=== PATIENT | male | born 1945 | race Caucasian/White ===

== ENCOUNTER 2019-04-03 05:00 | Inpatient (IN) | payer MEDICARE ==
[2019-03-29 12:31] LABS: BASOPHILS % 0.6 % (0.0-1.0); EOSINOPHILS # (AUTO) 0.1 (0.0-0.4); EOSINOPHILS % 1.6 % (0.0-6.0); HEMATOCRIT 40.2 % (38.2-49.6); HEMOGLOBIN 13.7 g/dL (14.0-18.0); LYMPHOCYTES # (AUTO) 1.8 (1.0-3.2); MEAN CORPUSCULAR HGB CONC 34.1 g/dL (31-35); MEAN CORPUSCULAR VOLUME 88.2 fL (81-99); MONOCYTES # (AUTO) 0.6 (0.2-0.8); MONOCYTES % 8.8 % (4.4-11.3); NEUTROPHILS # (AUTO) 3.8 (2.1-6.9); NEUTROPHILS % 59.8 % (38.7-80.0); PLATELET COUNT 231 x10e3/uL (140-360); RED BLOOD COUNT 4.56 x10e6/uL (4.3-5.7); RED CELL DISTRIBUTION WIDTH 12.7 % (11.7-14.4)
--- NOTE | 2019-03-29 14:24 | Diagnostic Imaging Report ---
Exam: Chest radiograph Clinical History: Preoperative clearance Findings: The cardiomediastinal silhouette and lungs are normal. The regional skeleton and soft tissue are unremarkable. Air-filled mildly prominent bowel loops are noted below bilateral diaphragms. There is no evidence of pleural effusion or pneumothorax. Impression: No radiographic evidence of acute cardiopulmonary disease. Signed by: Dr. Marcus Hylton MD on 03/29/2019 2:21 PM
[~2019-04-03] VITALS: Ht 175.3 cm; Wt 95.3 kg
[~2019-04-03 05:00] MED LIST: ATORVASTATIN CA20 MG PO; B-COMPLEX PO; DOXAZOSIN MESYLA2 MG PO; FINASTERIDE5 MG PO; FLOMAX0.4 MG PO; FLUOCINOLONE AC20 ML EACH EAR; LEVOTHYROXINE50 MCG PO; LOSARTAN POTASS25 MG PO; MIRALAX17 GM PO; REVATIO20 MG PO; SERTRALINE HCL50 MG PO
--- OUTSIDE RECORDS SUMMARY | 2019-04-03 05:07 | XMS REPORT ---
Author Author [facility] Address Unknown Phone Unavailable Care Team Providers [employer] Name Role Phone JASVIR RANGEL Unavailable Unavailable Problems This patient has no known problems. Allergies, Adverse Reactions, Alerts This patient has no known allergies or adverse reactions. Medications This patient has no known medications. Results Test Description Test Time Test Comments Text Results Atomic Results Result Comments CHEST 2 VIEWS 2019-03-29 14:20:00 [place] [address] Patient Name: DURGA MCCULLOUGH MR #: [id number] : 1945 Age/Sex: 73/M Req #: [id number] [facility] Physician: Ordered by: JASVIR RANGEL MD Report #: [id number] Location: OR Room/Bed: Procedure: [id number] DX/CHEST 2 VIEWS Exam Date: 03/29/19 Exam Time: 1300 REPORT STATUS: Signed Exam: Chest radiograph Clinical History: Preoperative clearance Findings: The cardiomediastinal silhouette and lungs are normal. The regional skeleton and soft tissue are unremarkable. Air-filled mildly prominent bowel loops are noted below bilateral diaphragms. There is no evidence of pleural effusion or pneumothorax. Impression: No radiographic evidence of acute cardiopulmonary disease. Signed by: Dr. Marcus Hylton MD on 03/29/2019 2:21 PM Dictated By: BARBARA HYLTON MD 1421 Transcribed By: DEMARCO on 03/29/19 1421 COPY TO: JASVIR RANGEL MD
[2019-04-03] MEDS ORDERED: CEFTRIAXONE SOD 1 GM/NS 50 ML 50 ML IV ONE (05:15)
[2019-04-03] MEDS ORDERED: GENTAMICIN 80MG/NS 100 ML 200 ML IV ONE (05:15)
[2019-04-03] MEDS ORDERED: B&O 60MG R/S 60 MG SUPP PR ONE (07:06)
[2019-04-03] MEDS ORDERED: IOPAMIDOL 610MG/1ML 300 MG/ML VIAL IV ONE (07:07)
[2019-04-03] MEDS: D5.45%NS/KCL 20MEQ 1,000 ML IV SCH ×2 (09:06→17:06)
[2019-04-03] MEDS ORDERED: FENTANYL CITRATE/PF 100MCG/2 ML INJ ONE ×2 (09:14→14:35)
[2019-04-03] MEDS ORDERED: ONDANSETRON HCL INJ 2MG/ML 2ML 2 MG/ML VIAL IV PRN (09:15)
[2019-04-03] MEDS ORDERED: B&O 60MG R/S 60 MG SUPP PR PRN (09:15)
[2019-04-03] MEDS ORDERED: DIPHENHYDRAMINE HCL 25 MG CAP PO PRN (09:15)
[2019-04-03] MEDS ORDERED: ACETAMINOPHEN/CODEINE 300MG - 30MG TAB PO PRN (09:15)
[2019-04-03 09:32] LABS: BASOPHILS % 0.6 % (0.0-1.0); EOSINOPHILS # (AUTO) 0.1 (0.0-0.4); EOSINOPHILS % 2.1 % (0.0-6.0); HEMATOCRIT 38.4 % (38.2-49.6); HEMOGLOBIN 12.8 g/dL (14.0-18.0); LYMPHOCYTES # (AUTO) 1.2 (1.0-3.2); MEAN CORPUSCULAR HEMOGLOBIN 29.7 pg (28-32); MEAN CORPUSCULAR HGB CONC 33.3 g/dL (31-35); MEAN CORPUSCULAR VOLUME 89.1 fL (81-99); MONOCYTES # (AUTO) 0.2 (0.2-0.8); NEUTROPHILS # (AUTO) 3.3 (2.1-6.9); NEUTROPHILS % 68.1 % (38.7-80.0); PLATELET COUNT 188 x10e3/uL (140-360); RED BLOOD COUNT 4.31 x10e6/uL (4.3-5.7); RED CELL DISTRIBUTION WIDTH 12.7 % (11.7-14.4)
[2019-04-03 09:47] LABS: ANION GAP 10.3 mmol/L (8-16); BLOOD UREA NITROGEN 15 mg/dL (7-26); BUN/CREATININE RATIO 14 (6-25); CALCIUM 8.8 mg/dL (8.4-10.2); CARBON DIOXIDE 28 mmol/L (22-29); CHLORIDE 105 mmol/L (98-107); CREATININE, SERUM 1.04 mg/dL (0.72-1.25); EST GLOMERULAR FILTRATION RATE > 60 ML/MIN (60-); GLUCOSE 111 mg/dL (74-118); POTASSIUM 4.3 mmol/L (3.5-5.1); SODIUM 139 mmol/L (136-145)
[2019-04-03] MEDS ORDERED: HYDROMORPHONE 1MG/1ML INJ ONE (09:48)
[2019-04-03] MEDS ORDERED: ONDANSETRON HCL INJ 2MG/ML 2ML 2 MG/ML VIAL ONE (10:57)
[2019-04-03] MEDS ORDERED: PROPOFOL IV EMULSION 10 MG/ML 20 ML VIAL ONE (10:57)
[2019-04-03] MEDS ORDERED: SEVOFLURANE INHAL SOLN 250 ML PEN BTL ONE (10:57)
[2019-04-03] MEDS ORDERED: DEXAMETHASONE SOD PHOS INJ 4 MG/ML VIAL ONE (10:57)
[2019-04-03] MEDS ORDERED: LIDOCAINE HCL 2% LOCAL INJ 5 ML SDV VIAL INJ ONE (10:57)
[2019-04-03] MEDS ORDERED: ACETAMINOPHEN 1000 MG/100 ML IV ONE (10:57)
[2019-04-03] MEDS: PHENAZOPYRIDINE HCL 100 MG TAB PO SCH ×2 (13:00→18:18)
[2019-04-03 14:34] VITALS: BP 102/58
--- NOTE | 2019-04-03 14:34 | NUR ---
PT ARRIVED TO FLOOR, IN STABLE CONDITION, AT BEDSIDE, WILL CONTINUE TO MONITOR.
[2019-04-03 16:13] VITALS: BP 148/66
[2019-04-03] MEDS: DOCUSATE SODIUM 100 MG CAP PO SCH (18:18)
[2019-04-03] MEDS: CEFTRIAXONE SOD 1 GM/NS 50 ML 50 ML IV SCH (18:23)
--- NOTE | 2019-04-03 19:00 | NUR ---
Received report from day nurse. Patient is resting comfortably in bed. Bed is in lowest position and call girard is within reach. Will continue to monitor patient.
--- NOTE | 2019-04-03 19:01 | NUR ---
REPORT GIVEN TO ONCOMING HEDGE TRIMMER RN, PT IN STABLE CONDITION, WILL CONTINUE TO MONITOR.
[2019-04-03 20:00] VITALS: BP 121/57
[2019-04-03 20:24] VITALS: BP 121/57
[2019-04-04] VITALS: BP 107/57
[2019-04-04 04:00] VITALS: BP 113/63
[2019-04-04] MEDS: D5.45%NS/KCL 20MEQ 1,000 ML IV SCH (05:13)
[2019-04-04] MEDS: LEVOTHYROXINE SODIUM 50 MCG TAB PO SCH (05:49)
[2019-04-04 06:08] LABS: BASOPHILS % 0.2 % (0.0-1.0); EOSINOPHILS % 0.3 % (0.0-6.0); HEMATOCRIT 36.9 % (38.2-49.6); HEMOGLOBIN 12.2 g/dL (14.0-18.0); LYMPHOCYTES % 16.5 % (18.0-39.1); MEAN CORPUSCULAR HEMOGLOBIN 29.3 pg (28-32); MEAN CORPUSCULAR HGB CONC 33.1 g/dL (31-35); MEAN CORPUSCULAR VOLUME 88.5 fL (81-99); MONOCYTES # (AUTO) 0.9 (0.2-0.8); MONOCYTES % 7.6 % (4.4-11.3); NEUTROPHILS % 75.1 % (38.7-80.0); PLATELET COUNT 204 x10e3/uL (140-360); RED BLOOD COUNT 4.17 x10e6/uL (4.3-5.7); RED CELL DISTRIBUTION WIDTH 12.6 % (11.7-14.4)
[2019-04-04 06:35] LABS: BLOOD UREA NITROGEN 13 mg/dL (7-26); BUN/CREATININE RATIO 14 (6-25); CALCIUM 8.6 mg/dL (8.4-10.2); CARBON DIOXIDE 28 mmol/L (22-29); CHLORIDE 103 mmol/L (98-107); EST GLOMERULAR FILTRATION RATE > 60 ML/MIN (60-); GLUCOSE 109 mg/dL (74-118); SODIUM 138 mmol/L (136-145)
--- NOTE | 2019-04-04 07:07 | NUR ---
report given to day nurse. patient is resting comfortably in bed. bed is in lowest position and call girard is within reach.
[2019-04-04 08:23] VITALS: BP 118/62
[2019-04-04] MEDS ORDERED: HYDROCODONE/APAP 10MG-325MG TAB PO PRN (08:45)
[2019-04-04] MEDS ORDERED: LEVOTHYROXINE SODIUM 50 MCG TAB PO SCH (09:00)
[2019-04-04 09:15] VITALS: BP 113/62
[2019-04-04] MEDS: DOCUSATE SODIUM 100 MG CAP PO SCH ×2 (10:32→16:57)
[2019-04-04] MEDS: ATORVASTATIN 20 MG TAB PO SCH (10:32)
[2019-04-04] MEDS: LOSARTAN POTASSIUM 25 MG TAB PO SCH (10:39)
[2019-04-04] MEDS: FINASTERIDE 5 MG TAB PO SCH (10:39)
[2019-04-04] MEDS: SERTRALINE HCL 50 MG TAB PO SCH (10:39)
[2019-04-04] MEDS: PHENAZOPYRIDINE HCL 100 MG TAB PO SCH ×3 (10:39→16:57)
[2019-04-04 12:43] VITALS: BP 118/62
--- NOTE | 2019-04-04 14:48 | History and Physical ---
PRIMARY CARE PHYSICIAN: Jayjay Hall MD. SURGEON: Darrick Gibbs MD. The patient is status post TURP. HISTORY OF PRESENT ILLNESS: The patient is a 73-year-old male, status post TURP procedure done by Dr. Darrick Gibbs. Baseline, the patient has hypothyroidism, hypertension, and enlarged prostate along with dyslipidemia. Postoperatively, the patient is stable. No chest pain. No shortness of breath. The patient is on continuous irrigation for gross hematuria. The patient is otherwise stable. PAST MEDICAL HISTORY: Chronic prostatitis associated with enlarged prostate, urinary retention, gross hematuria, hypertension, dyslipidemia, and hypothyroidism. PAST SURGICAL HISTORY: Status post TURP procedure. SOCIAL HISTORY: The patient does not smoke or use alcohol. No regular drugs. ALLERGIES: NO KNOWN ALLERGIES. HOME MEDICATIONS: List reviewed. PHYSICAL EXAMINATION: VITAL SIGNS: Temperature is 98, blood pressure 113/63, pulse rate 71, and respirations 18. GENERAL: The patient is not in acute distress. Awake. HEENT: Normocephalic and atraumatic. Anicteric. NECK: Supple grossly. PULMONARY: Clear. CARDIOVASCULAR: Regular rhythm. ABDOMEN: Soft. Alberto catheter in place. EXTREMITIES: No cyanosis or edema. NEUROLOGIC: No gross focal deficit. LABORATORY DATA: Sodium is 138, potassium 4, chloride 103, bicarb 20, BUN 13, creatinine 0.9, and glucose 109. WBC 12, hemoglobin 12, hematocrit 37, and platelets 204. IMPRESSION: 1. Status post postoperative day #1 transurethral resection of the prostate procedure done by Dr. Darrick Gibbs. 2. Baseline hypertension, dyslipidemia, and hypothyroidism. PLAN: Resume home medication. Discontinue IV fluids. Diet. Continue irrigation of the urinary Alberto catheter. MD AARON Marvin/MODL /[id number]
[2019-04-04] MEDS: CEFTRIAXONE SOD 1 GM/NS 50 ML 50 ML IV SCH (16:57)
[2019-04-04] MEDS ORDERED: TAMSULOSIN HCL 0.4 MG CAP PO SCH (17:00)
[2019-04-04 17:22] VITALS: BP 115/65
--- NOTE | 2019-04-04 19:27 | NUR ---
report given to oncoming nurse, pt stable.
--- NOTE | 2019-04-04 19:59 | NUR ---
pt received. pt assessed. no ss of distress noted. alex draining to gravity with continuos irrigation per orders. no co pain at time. will cont to follow poc. call girard within reach.
[2019-04-04] MEDS ORDERED: DOXAZOSIN MESYLATE 2 MG TAB PO SCH (21:00)
[2019-04-05] MEDS: LEVOTHYROXINE SODIUM 50 MCG TAB PO SCH (06:00)
[2019-04-05 06:41] LABS: BASOPHILS % 0.5 % (0.0-1.0); EOSINOPHILS # (AUTO) 0.2 (0.0-0.4); EOSINOPHILS % 1.8 % (0.0-6.0); HEMATOCRIT 37.7 % (38.2-49.6); HEMOGLOBIN 12.5 g/dL (14.0-18.0); LYMPHOCYTES # (AUTO) 2.4 (1.0-3.2); LYMPHOCYTES % 28.2 % (18.0-39.1); MEAN CORPUSCULAR HEMOGLOBIN 29.8 pg (28-32); MEAN CORPUSCULAR HGB CONC 33.2 g/dL (31-35); MEAN CORPUSCULAR VOLUME 89.8 fL (81-99); MONOCYTES # (AUTO) 0.8 (0.2-0.8); MONOCYTES % 9.4 % (4.4-11.3); NEUTROPHILS % 59.7 % (38.7-80.0); PLATELET COUNT 201 x10e3/uL (140-360); RED CELL DISTRIBUTION WIDTH 13.1 % (11.7-14.4)
[2019-04-05 07:04] LABS: ANION GAP 10.2 mmol/L (8-16); BLOOD UREA NITROGEN 13 mg/dL (7-26); BUN/CREATININE RATIO 14 (6-25); CALCIUM 8.6 mg/dL (8.4-10.2); CARBON DIOXIDE 31 mmol/L (22-29); CHLORIDE 101 mmol/L (98-107); EST GLOMERULAR FILTRATION RATE > 60 ML/MIN (60-); GLUCOSE 89 mg/dL (74-118); POTASSIUM 4.2 mmol/L (3.5-5.1); SODIUM 138 mmol/L (136-145)
--- NOTE | 2019-04-05 07:09 | NUR ---
see down time charting.
[2019-04-05 07:40] VITALS: BP 127/71
[2019-04-05] MEDS: PHENAZOPYRIDINE HCL 100 MG TAB PO SCH ×2 (08:59→13:12)
[2019-04-05] MEDS: FINASTERIDE 5 MG TAB PO SCH (08:59)
[2019-04-05] MEDS: LOSARTAN POTASSIUM 25 MG TAB PO SCH (08:59)
[2019-04-05] MEDS: DOCUSATE SODIUM 100 MG CAP PO SCH (08:59)
[2019-04-05] MEDS: SERTRALINE HCL 50 MG TAB PO SCH (08:59)
[2019-04-05] MEDS: ATORVASTATIN 20 MG TAB PO SCH (09:00)
--- NOTE | 2019-04-05 09:17 | NUR ---
Removed alex at this time. Patient tolerated well. Removed 1200 ml of clear urine noted.
[2019-04-05 10:02] VITALS: BP 127/71
[2019-04-05 11:55] VITALS: BP 134/72
[2019-04-05] MEDS ORDERED: LEVAQUIN500 MG PO (13:00)
[2019-04-05] MEDS ORDERED: TYLENOL WITH C1 EACH PO (13:00)
--- NOTE | 2019-04-05 13:15 | NUR ---
Patient discharged from facility to home. Patient assisted out via staff. Reviewed discharge paperwork, follow up appts and RX's given. NO s/s of distress noted. Serial urines were clear
[2019-04-05] MEDS ORDERED: ATORVASTATIN 20 MG TAB PO SCH (21:00)
--- NOTE | 2019-05-14 06:39 | Operative Report ---
DATE OF PROCEDURE: 04/03/2019 SURGEON: Darrick Gibbs MD PREOPERATIVE DIAGNOSES: 1. Obstructive benign prostatic hypertrophy. 2. Incomplete bladder emptying. POSTOPERATIVE DIAGNOSES: 1. Obstructive benign prostatic hypertrophy. 2. Incomplete bladder emptying. OPERATIONS PERFORMED: 1. Cystourethroscopy with bilateral ureteral catheterization and retrograde ureteropyelography (separate procedure performed for the incomplete bladder emptying). 2. Interpretation of retrograde ureteropyelography. 3. Supervision of fluoroscopy, no radiologist present. 4. Cystourethroscopy with transurethral resection of the prostate, utilizing the plasma button electrode. ANESTHESIA: General. COMPLICATIONS: None. CLINICAL SUMMARY: Daron Reilly is a 73-year-old man with the above preoperative diagnosis. He was brought for the above procedures. He is aware of the risks of bleeding, infection, injury to adjacent structures, incontinence, impotence, retrograde ejaculation, need for additional procedures and elected to proceed. OPERATIVE PROCEDURE IN DETAIL: Informed consent was verified. Daron Reilly was properly identified and taken to the operating room, placed on the cystoscopy table in supine position. Anesthesia was uneventfully begun. The patient was then carefully and gently repositioned in the dorsal lithotomy position with all pressure points well padded. His genitalia were prepared and draped in usual sterile fashion. The cystoscope sheath with the visual obturator in place was atraumatically inserted into the patient's urethra, it was guided unremarkable urethra through the normal sphincteric region through the prostate bed, which was significant for trilobar prostatic hypertrophy with kissing lateral lobes and a prominent median lobe. We went to the patient's bladder and drained it. Panendoscopy revealed grade 4 trabeculation with early diverticular formation. There were no suspicious mucosal lesions. There were no tumors and there were no stones. An 8-Mosotho catheter was used to cannulate each ureter and retrograde ureteral pyelograms were performed. Interpretation of retrograde ureteropyelography contrast was instilled in retrograde fashion bilaterally. J-hooking was present bilaterally, but there were no tumors no stones, and no diverticula. Unobstructed drainage was observed bilaterally fluoroscopically. This seemed to be bilateral medial deviation of both ureters. Unobstructed drainage was observed bilaterally fluoroscopically. The cystoscope was withdrawn, the resectoscope was atraumatically placed with an obturator. We then utilized a plasma button electrode to vaporize the prostate from the bladder neck tube, but never passed the verumontanum. First we have limited to median lobe, taking care to stay away from the ureteral orifices and not to injure them in any way. Once we limited the median lobe, we worked on both lateral lobes from the bladder neck tube, but never passed the verumontanum and down the surgical capsule. Pinpoint electrocautery was utilized to achieve hemostasis. The resectoscope was then withdrawn. The continuous irrigation Alberto catheter was placed. It was irrigated to and fro to ensure it worked properly. Continuous bladder irrigation was begun with clear efflux. The patient was then uneventfully reversed from anesthesia and taken to recovery room in stable condition. There were no complications of the procedure. The patient tolerated the procedure well. Estimated blood loss was minimal. We will proceed with routine postoperative care and of course ongoing urological followup. Following discharge, we will follow the patient up in the office for uroflowmetry and bladder ultrasonography. Darrick Gibbs MD [place]/MODL /[id number] cc: Jayjay Hall MD
== END 2019-04-05 13:15 | disposition home or self-care (01) | DRG 714 ==
LOC: OR 05:00 → PACU V 09:08 → MED/SURG 14:57
PROVIDERS: ADMIT Internal Medicine; ATTEND Internal Medicine
PROC: BT141ZZ Fluoroscopy of Kidneys, Ureters and Bladder using Low Osmolar Contrast (ICD-10-PCS; 2019-04-03)
PROC: 0T788ZZ Dilation of Bilateral Ureters, Via Natural or Artificial Opening Endoscopic (ICD-10-PCS; principal; 2019-04-03 07:00)
PROC: 0V508ZZ Destruction of Prostate, Via Natural or Artificial Opening Endoscopic (ICD-10-PCS; 2019-04-03 07:00)
DX: N40.0 Benign prostatic hyperplasia without lower urinary tract symptoms (principal); I10 Essential (primary) hypertension; E03.9 Hypothyroidism, unspecified; E78.5 Hyperlipidemia, unspecified; N40.1 Benign prostatic hyperplasia with lower urinary tract symptoms; R39.14 Feeling of incomplete bladder emptying
CPT/HCPCS: 36415; 71046; 74420; 80048; 83735; 85025; 93005; C1758; J0696; J1100; J1170; J1580; J2001; J2405; J3010